=== PATIENT | female | born 1975 | race Hispanic/Latino ===

== ENCOUNTER 2023-03-16 17:48 | Emergency (ER) | payer OTHER ==
[~2023-03-16] VITALS: Ht 157.5 cm; Wt 72.6 kg
[2023-03-16 19:47] VITALS: O2SAT 100
[2023-03-16] MEDS ORDERED: ULTRAM 50MG50 MG PO (19:48)
== END 2023-03-16 19:49 | disposition home or self-care (01) ==
LOC: ER 17:54
DX: M79.605 Pain in left leg (principal); M79.604 Pain in right leg; I10 Essential (primary) hypertension; D64.9 Anemia, unspecified
CPT/HCPCS: 93970; 99283